=== PATIENT | female | born 2000 | race Hispanic/Latino ===

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

== ENCOUNTER 2019-09-26 08:18 | Emergency (ER) | payer SELFPAY ==
[~2019-09-26] VITALS: Ht 162.6 cm; Wt 90.0 kg
[~2019-09-26 08:18] MED LIST changes: +CEPHALEXIN500 M1 PO; +ROBITUSSIN AC10 ML PO
[2019-09-26] MEDS ORDERED: AMOXICILLIN500 M2 PO (09:03)
[2019-09-26 09:24] VITALS: BP 124/74
== END 2019-09-26 09:24 | disposition home or self-care (01) | DRG 153 ==
LOC: ED 08:18
DX: J02.0 Streptococcal pharyngitis (principal)

== ENCOUNTER 2020-05-02 10:39 | Emergency (ER) | payer OTHER ==
[~2020-05-02] VITALS: Ht 162.6 cm; Wt 97.7 kg
[~2020-05-02 10:39] MED LIST changes: +AMOXICILLIN500 M2 PO
[2020-05-02] MEDS ORDERED: FLOXIN OTIC0.3 % AD (11:24)
[2020-05-02] MEDS ORDERED: AMOXICILLIN875 MG PO (11:24)
[2020-05-02 11:36] VITALS: BP 143/86
== END 2020-05-02 11:40 | disposition home or self-care (01) | DRG 153 ==
LOC: ED 10:39
DX: H66.91 Otitis media, unspecified, right ear (principal); H60.91 Unspecified otitis externa, right ear

== ENCOUNTER 2020-06-30 13:48 | Emergency (ER) | payer OTHER ==
[~2020-06-30] VITALS: Ht 165.1 cm; Wt 105.0 kg
[~2020-06-30 13:48] MED LIST changes: +AMOXICILLIN875 MG PO; +FLOXIN OTIC0.3 % AD
[2020-06-30] MEDS ORDERED: CIPRODEX1 ML OT (14:40)
[2020-06-30 14:50] VITALS: BP 141/72
== END 2020-06-30 14:50 | disposition home or self-care (01) | DRG 156 ==
LOC: ED 13:48
DX: H60.91 Unspecified otitis externa, right ear (principal)